=== PATIENT | female | born 1955 | race Caucasian/White ===

== ENCOUNTER 2016-10-27 15:55 | Emergency (ER) | payer OTHER ==
[2016-10-27 16:02] VITALS: O2SAT 95
[2016-10-27] MEDS ORDERED: Albuterol-Ipratrop 3 mg / 0.5 (3 ml) UD IH STA (16:19)
--- NOTE | 2016-10-27 16:28 | C.PDOC ---
History Of Present Illness 61 yo female with h/o Asthma, HTN, presents to the ED c/o coughing x 1 week. Symptoms occur mostly at night where she gets coughing episodes that then lead to left back pain and shortness of breathe when she coughs. No chest pain. She' s been using Ventolin and Breo to help with her symptoms and they do help. No fever, chills or bodyaches. She's been eating and drinking normal. No weakness or lightheadedness. Translation by Roma GOTTI:. Dr. Holli Rachel Time Seen by Provider: 10/27/16 16:10 Chief Complaint (Nursing): Cough, Cold, Congestion History Per: Patient, Family History/Exam Limitations: no limitations Past Medical History Reviewed: Historical Data Vital Signs: Last Vital Signs Temp 98.8 F 10/27/16 16:00 Pulse 75 10/27/16 16:00 Resp 19 10/27/16 16:00 BP 132/84 10/27/16 16:00 Pulse Ox 95 10/27/16 16:31 - Medical History PMH: Asthma, HTN Denies: Chronic Kidney Disease Family History: States: Unknown Family Hx - Social History Hx Tobacco Use: No Hx Alcohol Use: No Hx Substance Use: No - Immunization History Hx Tetanus Toxoid Vaccination: No Hx Influenza Vaccination: No Hx Pneumococcal Vaccination: No Review Of Systems Except As Marked, All Systems Reviewed And Found Negative. Cardiovascular: Negative for: Chest Pain Respiratory: Positive for: Cough, Shortness of Breath, Wheezing. Negative for: SOB with Excertion, Pleuritic Pain, Sputum Gastrointestinal: Negative for: Nausea Musculoskeletal: Positive for: Back Pain. Negative for: Neck Pain Neurological: Negative for: Weakness Physical Exam - Physical Exam Appears: Well, No Acute Distress Skin: Normal Color, Warm, Dry Eye(s): bilateral: Normal Inspection, PERRL, EOMI Nose: Normal Oral Mucosa: Moist Tongue: Normal Appearing Throat: Normal Neck: Normal, Normal ROM Cardiovascular: Rhythm Regular Respiratory: Normal Breath Sounds, Rhonchi (left rhonchi), Wheezing (trace expiratory wheezing) Gastrointestinal/Abdominal: Normal Exam Back: Normal Inspection Extremity: Normal ROM Neurological/Psych: Oriented x3, Normal Speech, Normal Motor, Normal Sensation ED Course And Treatment O2 Sat by Pulse Oximetry: 95 Medical Decision Making Medical Decision Makin yo female with h/o HTN/Asthma presents with nasal congestion and cough with associated post-tussive sob/left back pain -- CXR -- Alb/Atrovent -- Prednisone PO -- Reevaluate and disposition 5:30 After one treatment she felt much better. Lungs clear. Still no tachypnea. She says it mostly bothers her at night when she coughs. CXR negative with no pna. Compared cxr to previous xrays. Will discharge her home on albuterol, prednisone and robitussion. Disposition Counseled Patient/Family Regarding: Studies Performed, Diagnosis, Need For Followup - Disposition Referrals: Jessy Young MD [Staff Provider] - Disposition: HOME/ ROUTINE Disposition Time: 17:27 Condition: IMPROVED Additional Instructions: Ms Catherine, thank you for letting us take care of you today. Your provider was Dr. Zazueta. You were treated for Bronchitis. The emergency medical care you received today was directed at your acute symptoms. If you were prescribed any medication, please fill it and take as directed. It may take several days for your symptoms to resolve. Return to the Emergency Department if your symptoms worsen, do not improve, or if you have any other problems. Please contact your doctor or call one of the physicians/clinics you have been referred to that are listed on the Patient Visit Information form that is included in your discharge packet. Bring any paperwork you were given at discharge with you along with any medications you are taking to your follow up visit. Our treatment cannot replace ongoing medical care by a primary care provider (PCP) outside of the emergency department. Thank you for allowing the [facility] team to be part of your care today. If you had an X-Ray or CT scan: A Radiologist will review the ED reading if any change in treatment is needed we will contact you. If you had a blood, urine, or wound culture: It will take several days for the results, if any change in treatment is needed we will contact you. If you had an STI test: It will take 48 hours for the results. Please call after 1 week if you have not heard back. Prescriptions: Albuterol HFA [Ventolin HFA 90 mcg/actuation (8 g)] 2 puff IH Q4 #1 puff guaiFENesin [guaifENESIN] 200 mg PO Q8 #1 bottle predniSONE [predniSONE Tab] 40 mg PO DAILY #8 tab Instructions: Asthma (ED) Forms: General Discharge Instructions - POA Present On Arrival: None - Clinical Impression Clinical Impression: Bronchitis, Asthma
[2016-10-27] MEDS ORDERED: Albuterol-Ipratrop 3 mg / 0.5 (3 ml) UD ONE (17:07)
--- NOTE | 2016-10-27 17:25 | RAD ---
HISTORY: cough r/o pna COMPARISON: Comparison is made to 01/12/2016 TECHNIQUE: Chest PA and lateral FINDINGS: LUNGS: No significant interval change in the lungs. Mild hyperinflation of the lungs is again noted. Small nodular opacities at the lung apices are again seen. PLEURA: No significant pleural effusion identified. No pneumothorax apparent. CARDIOVASCULAR: Normal. OSSEOUS STRUCTURES: No significant abnormalities. VISUALIZED UPPER ABDOMEN: Normal. OTHER FINDINGS: None. IMPRESSION: No active disease. No significant interval change.
[2016-10-27 17:31] VITALS: BP 120/74; PULSE 76; RESP 20; TEMP 97.8
== END 2016-10-27 17:36 | disposition home or self-care (01) ==
LOC: C.ER 15:55
DX: J40 Bronchitis, not specified as acute or chronic (principal); J45.909 Unspecified asthma, uncomplicated

== ENCOUNTER 2016-11-17 17:43 | Observation (INO) | payer OTHER ==
[2016-11-17] MEDS ORDERED: Albuterol-Ipratrop 3 mg / 0.5 (3 ml) UD ONE ×2 (17:55→19:28)
[2016-11-17] MEDS ORDERED: Albuterol-Ipratrop 3 mg / 0.5 (3 ml) UD INH STA (19:08)
[2016-11-17 19:17] LABS: BASO % 0.3 % (0.0-2.0); EOS # 0.7 K/uL (0.0-0.7); EOS % 7.6 % (0.0-4.0); HEMOGLOBIN 14.2 g/dL (11.0-16.0); LYMPH # 5.3 K/uL (1.0-4.3); LYMPH % 55.3 % (20.0-40.0); MEAN CELL VOLUME 90.5 fL (81.0-99.0); MEAN CORPUSCULAR HEMOGLOBIN 30.5 pg (27.0-31.0); MEAN CORPUSCULAR HGB CONC 33.7 g/dL (33.0-37.0); MEAN PLATELET VOLUME 7.7 fL (7.2-11.7); MONO # 0.8 K/uL (0.0-0.8); MONO % 8.5 % (0.0-10.0); NEUT # 2.7 K/uL (1.8-7.0); NEUT % 28.3 % (50.0-75.0); NRBC % 0.1 % (0.0-2.0); RBC 4.67 Mil/uL (3.80-5.20); RED CELL DISTRIBUTION WIDTH 12.6 % (11.5-14.5); WHITE BLOOD COUNT 9.5 K/uL (4.8-10.8)
[2016-11-17 19:24] LABS: ALBUMIN 4.5 g/dL (3.5-5.0)
[2016-11-17 19:27] LABS: ALB/GLOB RATIO 1.1 (1.0-2.1); AST/SGOT 28 U/L (14-36); BLOOD UREA NITROGEN 16 mg/dL (7-17); GFR AFRICAN-AMERICAN > 60; GFR NON-AFRICAN AMERICAN > 60
[2016-11-17 19:28] LABS: ALT/SGPT 35 U/L (9-52); CALCIUM 9.2 mg/dl (8.6-10.4)
--- NOTE | 2016-11-17 19:33 | C.PDOC ---
History Of Present Illness 61 year old female presents to the ED with complaints of SOB for a few days but has worsened today with associated productive cough with white sputum. Patient notes a history of asthma but denies chest pain or fever. Chief Complaint (Nursing): Shortness Of Breath History Per: Patient History/Exam Limitations: no limitations Onset/Duration Of Symptoms: Days, Worse Since (today) Current Symptoms Are (Timing): Still Present Associated Symptoms: Productive Cough. denies: Fever, Chills Recent travel outside of the [place]: No Past Medical History Reviewed: Historical Data, Nursing Documentation, Vital Signs Vital Signs: Last Vital Signs Temp 98.2 F 11/17/16 17:48 Pulse 89 11/17/16 23:33 Resp 20 11/17/16 23:33 BP 133/77 11/17/16 23:33 Pulse Ox 92 L 11/17/16 23:45 - Medical History PMH: Asthma, HTN Family History: States: Unknown Family Hx - Social History Hx Tobacco Use: No Hx Alcohol Use: No Hx Substance Use: No - Immunization History Hx Tetanus Toxoid Vaccination: No Hx Influenza Vaccination: No Hx Pneumococcal Vaccination: No Review Of Systems Constitutional: Negative for: Fever, Chills Cardiovascular: Negative for: Chest Pain Respiratory: Positive for: Cough, Shortness of Breath Gastrointestinal: Negative for: Nausea, Vomiting, Abdominal Pain, Diarrhea Physical Exam - Physical Exam Appears: Non-toxic, Other (Slightly dyspenic ) Skin: Warm, Dry Head: Atraumatic Eye(s): bilateral: Normal Inspection, PERRL, EOMI Oral Mucosa: Moist Neck: Supple Chest: Symmetrical, No Deformity Cardiovascular: Rhythm Regular Respiratory: Rhonchi, Wheezing Gastrointestinal/Abdominal: Soft, No Tenderness, No Distention, No Guarding, No Rebound Neurological/Psych: Oriented x3, Normal Speech, Normal Cognition, Normal Cranial Nerves, Normal Motor, Normal Sensation ED Course And Treatment - Laboratory Results Result Diagrams: 11/17/16 19:14 11/17/16 19:14 ECG: Interpreted By Me, Viewed By Me ECG Rhythm: Sinus Rhythm ECG Interpretation: Normal, No Acute Changes Interpretation Of ECG: NSR, normal tracings. Rate From EC O2 Sat by Pulse Oximetry: 96 Pulse Ox Interpretation: Normal - Radiology CXR: Interpreted by Me, Viewed By Me CXR Interpretation: Yes: Other (presence of infiltrative lesion or chronic changes) Disposition Discussed With : Cody De La Vega Doctor Will See Patient In The: Hospital Counseled Patient/Family Regarding: Diagnosis - Disposition Disposition: HOSPITALIZED Disposition Time: 00:29 Condition: STABLE Forms: [facility] (Liberian) - POA Present On Arrival: None - Clinical Impression Clinical Impression: Asthma exacerbation - Scribe Statement The provider has reviewed the documentation as recorded by the Scribe Yashira Curran All medical record entries made by the Lakshmiibe were at my direction and personally dictated by me. I have reviewed the chart and agree that the record accurately reflects my personal performance of the history, physical exam, medical decision making, and the department course for this patient. I have also personally directed, reviewed, and agree with the discharge instructions and disposition.
[2016-11-17 19:37] LABS: B-TYPE NATRIURETIC PEPTIDE 42.3 pg/mL (0-900)
[2016-11-17] MEDS ORDERED: cefTRIAXone IV 1 gm in Dextros 50 ML IVPB ONE ×2 (19:37→20:17)
[2016-11-17] MEDS ORDERED: Azithromycin 500mg/250ML NS 500 MG/250 ML BAG IV STA (19:38)
[2016-11-17 20:20] LABS: ABG ALLEN TEST POS; ARTERIAL BLOOD GAS HCO3 25.5 mmol/L (21-28); ARTERIAL BLOOD GAS HEMOGLOBIN 12.6 g/dL (11.7-17.4); ARTERIAL BLOOD GAS O2 SAT 97.3 % (95-98); ARTERIAL BLOOD GAS PCO2 43 mm/Hg (35-45); ARTERIAL BLOOD GAS PH 7.39 (7.35-7.45); ARTERIAL BLOOD GAS PO2 70 mm/Hg (80-100); ARTERIAL BLOOD GAS TCO2 27.3 mmol/L (22-28)
[2016-11-17] MEDS ORDERED: Azithromycin 500mg/250ML NS 500 MG/250 ML BAG IVPB ONE (20:29)
--- NOTE | 2016-11-17 21:40 | CT ---
EXAM: CT Chest Without Intravenous Contrast CLINICAL HISTORY: 61 years old, female; Signs and symptoms; Other: Infiltrate chronic changes; Additional info: Sob/ infiltrate or chronic cjhanges TECHNIQUE: Axial computed tomography images of the chest without intravenous contrast. This CT exam was performed using one or more of the following dose reduction techniques: automated exposure control, adjustment of the mA and/or kV according to patient size, and/or use of iterative reconstruction technique. Coronal and sagittal reformatted images were created and reviewed. EXAM DATE/TIME: Exam ordered 11/17/2016 8:05 PM COMPARISON: No relevant prior studies available. FINDINGS: Lungs: There is mild bronchiectasis at the lung apices. Subpleural parenchymal opacities are noted in the lateral aspect of the left upper lobe with associated bronchiectasis. A pleural-based calcification is seen in the right middle lobe abril-laterally. Pleural based calcification is noted in the left lower lobe laterally and adjacent to the mediastinum at the level of the heart at the level of the anterior mediastinum... Scattered subcentimeter parenchymal opacities are noted in both lungs. They are often associated with focal areas of bronchiectasis or mucoid impaction Pleural space: There is biapical pleural thickening. No pneumothorax. No significant effusion. Heart: Unremarkable. No cardiomegaly. No significant pericardial effusion. Bones/joints: Unremarkable. No acute fracture. No dislocation. Soft tissues: Coarse calcifications are noted in the left breast tissue Vasculature: Unremarkable. No thoracic aortic aneurysm. Lymph nodes: Unremarkable. No enlarged lymph nodes. IMPRESSION: 1. Predominantly biapical pleural thickening with bronchiectasis. The distribution of disease and the presence of pleural calcifications predominantly suggest previous granulomatous infection. 2. Scattered parenchymal opacities which appear to be related to areas of mucous impacted dilated distal bronchi. 3. Pleural calcifications. 4. Coarse calcifications noted within the left breast. Correlation with patient's mammogram recommended
[2016-11-17 23:34] VITALS: RESP 20
[2016-11-18] MEDS ORDERED: Albuterol-Ipratrop 3 mg / 0.5 (3 ml) UD IH PRN (01:36)
--- NOTE | 2016-11-18 02:39 | CP.PCM.HP ---
<Khurram Kinney - Last Filed: 11/18/16 02:33> History of Present Illness - History of Present Illness History of Present Illness: PGY-[address] De La Vega HPI: This is a 61 year old female with a PMH of HTN and Asthma who presents to the ED with a CC of trouble breathing for 1 week. It is associated with a cough at night that is consistently waking her up. The SOB has been constant since it began. She denies any prior episodes. She uses an inhaler every morning and has recently been started on Singulair. She denies sick contacts or recent travel. She denies CP/F/night sweats/Chills/N/V. PMH: * Asthma * HTN PSH: none SH: , lives with her who is currently overseas, denies smoking and alcohol use Meds: * Albuterol 3mg * Montelukast 10mg Allergies: * Advil * Eggs * Fish * Peanuts Present on Admission - Present on Admission Any Indicators Present on Admission: No History of DVT/PE: No History of Uncontrolled Diabetes: No Urinary Catheter: No Decubitus Ulcer Present: No Review of Systems - Constitutional Constitutional: As Per HPI - EENT Eyes: As Per HPI Ears: As Per HPI Nose/Mouth/Throat: As Per HPI - Breasts Breasts: As Per HPI - Cardiovascular Cardiovascular: As Per HPI - Respiratory Respiratory: As Per HPI - Gastrointestinal Gastrointestinal: As Per HPI - Genitourinary Genitourinary: As Per HPI - Reproductive: Female Reproductive:Female: As Per HPI - Menstruation Menstruation: As Per HPI - Musculoskeletal Musculoskeletal: As Per HPI - Integumentary Integumentary: As Per HPI - Neurological Neurological: As Per HPI - Psychiatric Psychiatric: As Per HPI - Endocrine Endocrine: As Per HPI - Hematologic/Lymphatic Hematologic: As Per HPI Past Patient History - Infectious Disease Hx of Infectious Diseases: None - Past Medical History & Family History Past Medical History?: Yes - Past Social History Smoking Status: Never Smoked - CARDIAC Hx Hypertension: Yes - PULMONARY Hx Asthma: Yes - NEUROLOGICAL Hx Neurological Disorder: No Other/Comment: AAOX3 - HEENT Hx HEENT Problems: No - RENAL Hx Chronic Kidney Disease: No - ENDOCRINE/METABOLIC Hx Endocrine Disorders: No - HEMATOLOGICAL/ONCOLOGICAL Hx Blood Disorders: No Hx Blood Transfusions: No - INTEGUMENTARY Hx Dermatological Problems: No - MUSCULOSKELETAL/RHEUMATOLOGICAL Hx Falls: No - GASTROINTESTINAL Hx Gastrointestinal Disorders: No - GENITOURINARY/GYNECOLOGICAL Hx Genitourinary Disorders: No - PSYCHIATRIC Hx Substance Use: No - SURGICAL HISTORY Hx Surgeries: No - ANESTHESIA Hx Anesthesia: No Meds Allergies/Adverse Reactions: Allergies Allergy/AdvReac Type Severity Reaction Status Date / Time EGG Allergy Verified 11/17/16 17:47 ibuprofen [From Advil] Allergy SHORTNESS Verified 11/17/16 17:47 OF BREATH nut - unspecified Allergy Verified 11/17/16 17:47 peas Allergy Verified 11/17/16 17:47 moxifloxacin AdvReac RASH Verified 11/17/16 17:47 Physical Exam - Constitutional Appears: Well, Non-toxic, No Acute Distress - Head Exam Head Exam: ATRAUMATIC, NORMAL INSPECTION, NORMOCEPHALIC - Eye Exam Eye Exam: EOMI, Normal appearance. absent: Conjunctival injection, Periorbital swelling, Periorbital tenderness Pupil Exam: absent: Fixed, Irregular, Miosis, Mydriatic - ENT Exam ENT Exam: Mucous Membranes Moist, Normal Exam. absent: Mucous Membranes Dry - Respiratory Exam Respiratory Exam: Clear to Auscultation Bilateral, NORMAL BREATHING PATTERN. absent: Accessory Muscle Use, Chest Wall Tenderness, Decreased Breath Sounds, Rhonchi, Wheezes - Cardiovascular Exam Cardiovascular Exam: REGULAR RHYTHM, RRR. absent: Bradycardia, Tachycardia, Irregular Rhythm, JVD - GI/Abdominal Exam GI & Abdominal Exam: Normal Bowel Sounds, Soft. absent: Bruit, Diminished Bowel Sounds, Distended, Firm, Guarding, Hernia, Hyperactive Bowel Sounds, Hypoactive Bowel Sounds, Mass, Organomegaly, Pulsatile Mass, Rebound, Rigid, Tenderness - Neurological Exam Neurological exam: Alert, Oriented x3 - Psychiatric Exam Psychiatric exam: Normal Affect, Normal Mood - Skin Skin Exam: Dry, Intact, Normal Color, Warm - Additional Findings Additional findings: coughing, non productive Results - Vital Signs Recent Vital Signs: Last Vital Signs Temp 98.2 F 11/18/16 01:32 Pulse 90 11/18/16 01:32 Resp 20 11/18/16 01:32 BP 137/78 11/18/16 01:32 Pulse Ox 96 11/18/16 01:32 - Labs Result Diagrams: 11/17/16 19:14 11/17/16 19:14 Assessment & Plan - Assessment and Plan (Free Text) Assessment: 1. Asthma Exacerbation * CT Chest: No evidence of PNA * Duoneb 3mg PRN * Singulair 10mg HS * Solumedrol 10mg IV Q6 * Measure Peak Flow 2. HTN * Amlodipine 10mg PO QD 3. PPX * Ambulate, OOB - Date & Time Date: 11/18/16 Time: 02:46 Decision To Admit - Pt Status Changed To: Hospital Disposition Of: Observation - . Bed Request Type: Regular Admitting Physician: Cody De La Vega <Cody De La Vega - Last Filed: 11/18/16 05:30> Results - Vital Signs Recent Vital Signs: Last Vital Signs Temp 98.2 F 11/18/16 01:32 Pulse 90 11/18/16 01:32 Resp 20 11/18/16 01:32 BP 137/78 11/18/16 01:32 Pulse Ox 96 11/18/16 01:32 - Labs Result Diagrams: 11/17/16 19:14 11/17/16 19:14 Assessment & Plan - Date & Time Date: 11/18/16 (I have seen and examined the patient. I agree with the findings and plan of care as documented by Dr. Kinney. Patient with asthma exacerbation. Continue home meds. Duonebs with peak flows before and after treatment. Solumedrol IV. Monitor for acute changes.) Time: 05:30 Attending/Attestation - Attestation I have personally seen and examined this patient.: Yes I have fully participated in the care of the patient.: Yes I have reviewed all pertinent clinical information: Yes
[2016-11-18] MEDS: Albuterol-Ipratrop 3 mg / 0.5 (3 ml) UD IH PRN ×4 (05:48→22:15)
--- NOTE | 2016-11-18 08:15 | RAD ---
HISTORY: Shortness of breath COMPARISON: No prior. TECHNIQUE: Chest PA and lateral FINDINGS: LUNGS: Prominent biapical pleural thickening with upper lobe confluent nodular opacities again noted at the lung apices. Diffuse increased interstitial lung markings. Right hilar prominence. Bibasilar breast and nipple shadows. Small nodular density projecting over the left lower lung zone. Scattered nodularity throughout both lungs. PLEURA: No significant pleural effusion identified. No pneumothorax apparent. CARDIOVASCULAR: Calcification at the aortic knob. OSSEOUS STRUCTURES: Degenerative changes in the spine. VISUALIZED UPPER ABDOMEN: Normal. OTHER FINDINGS: None. IMPRESSION: Prominent biapical pleural thickening with upper lobe confluent nodular opacities again noted at the lung apices. Diffuse increased interstitial lung markings. Right hilar prominence. Bibasilar breast and nipple shadows. Small nodular density projecting over the left lower lung zone. Scattered nodularity throughout both lungs.
--- NOTE | 2016-11-18 17:49 | CP.PCM.PN ---
Subjective - Date & Time of Evaluation Date of Evaluation: 11/18/16 Time of Evaluation: 12:40 - Subjective Subjective: PGY-[address] Hyde Patient seen and examined at bedside. Patient states that she uses her Albuterol 3 times a day. Patient states that she has never been intubated. Patient reports slight shortness of breath. Patient is feeling congested and has a dry cough. Denies chest pain, abdominal pain, dysuria. Objective - Vital Signs/Intake and Output Vital Signs (last 24 hours): Temp Pulse Resp BP Pulse Ox 97.7 F 93 H 20 114/65 98 11/18/16 16:50 11/18/16 16:50 11/18/16 16:50 11/18/16 16:50 11/18/16 16:50 Intake and Output: 11/18/16 11/18/16 06:59 18:59 Intake Total 200 300 Balance 200 300 - Medications Medications: Current Medications Albuterol/Ipratropium (Duoneb 3 Mg/0.5 Mg (3 Ml) Ud) 3 ml IH RQ4 PRN PRN Reason: asthma Last Admin: 11/18/16 15:46 Dose: 3 ml Amlodipine Besylate (Norvasc) 10 mg PO DAILY [facility] Last Admin: 11/18/16 10:07 Dose: 10 mg Guaifenesin (Mucinex La) 600 mg PO BID [facility] Methylprednisolone (Solu-Medrol) 40 mg IV Q6 [facility] Last Admin: 11/18/16 17:37 Dose: 40 mg Montelukast Sodium (Singulair) 10 mg PO HS [facility] Fluticasone/Salmeterol (Advair Diskus 250/50) 1 puff INH RQ12 [facility] - Constitutional Appears: No Acute Distress - Head Exam Head Exam: ATRAUMATIC, NORMAL INSPECTION, NORMOCEPHALIC - Eye Exam Eye Exam: EOMI, PERRL - ENT Exam ENT Exam: Mucous Membranes Moist - Respiratory Exam Respiratory Exam: Rhonchi, Wheezes. absent: Rales - Cardiovascular Exam Cardiovascular Exam: REGULAR RHYTHM, +S1, +S2 - GI/Abdominal Exam GI & Abdominal Exam: Soft, Normal Bowel Sounds. absent: Tenderness - Neurological Exam Neurological Exam: Alert, Awake, Oriented x3 - Skin Skin Exam: Dry, Intact, Normal Color, Warm Assessment and Plan - Assessment and Plan (Free Text) Plan: 1. Asthma Exacerbation CT Chest: 1. Predominantly biapical pleural thickening with bronchiectasis. The distribution of disease and the presence of pleural calcifications predominantly suggest previous granulomatous infection. 2. Scattered parenchymal opacities which appear to be related to areas of mucous impacted dilated distal bronchi. * Duoneb 3mg PRN * Singulair 10mg HS * Solumedrol 10mg IV Q6 * Advair 250/125 Q12H * Measure Peak Flow 2. Hypertension * Amlodipine 10mg PO QD 3. Prophylactic measures * Ambulate * OOB Case discussed with Dr. Hyde. Bernard Lance PGY1
[2016-11-18] MEDS: Fluticasone-Salmeterol 250-50mcg Diskus INH SCH ×2 (19:39→22:14)
[2016-11-18] MEDS: guaiFENesin 600 mg ER Tab PO SCH (21:23)
[2016-11-19] MEDS: Albuterol-Ipratrop 3 mg / 0.5 (3 ml) UD IH PRN ×4 (07:21→19:22)
[2016-11-19 07:31] LABS: BASO % 0.1 % (0.0-2.0); HEMOGLOBIN 12.8 g/dL (11.0-16.0); LYMPH # 1.5 K/uL (1.0-4.3); MEAN CELL VOLUME 91.3 fL (81.0-99.0); MEAN CORPUSCULAR HEMOGLOBIN 29.8 pg (27.0-31.0); MEAN CORPUSCULAR HGB CONC 32.6 g/dL (33.0-37.0); MEAN PLATELET VOLUME 8.1 fL (7.2-11.7); MONO # 0.6 K/uL (0.0-0.8); MONO % 3.8 % (0.0-10.0); NEUT % 86.1 % (50.0-75.0); RBC 4.29 Mil/uL (3.80-5.20); RED CELL DISTRIBUTION WIDTH 12.5 % (11.5-14.5)
[2016-11-19 07:33] LABS: WHITE BLOOD COUNT 15.2 K/uL (4.8-10.8)
[2016-11-19 07:39] LABS: ALB/GLOB RATIO 1.1 (1.0-2.1); ALT/SGPT 25 U/L (9-52); AST/SGOT 19 U/L (14-36); BLOOD UREA NITROGEN 15 mg/dL (7-17); GFR AFRICAN-AMERICAN > 60; GFR NON-AFRICAN AMERICAN > 60
[2016-11-19 07:40] LABS: CALCIUM 8.8 mg/dl (8.6-10.4)
[2016-11-19] MEDS: Fluticasone-Salmeterol 250-50mcg Diskus INH SCH ×2 (09:33→19:22)
[2016-11-19] MEDS ORDERED: Enoxaparin 40 mg Syringe SC SCH (10:00)
[2016-11-19] MEDS: MethylPREDNISolone 40 mg Vial IV SCH ×3 (10:56→17:08)
[2016-11-19] MEDS: guaiFENesin 600 mg ER Tab PO SCH ×2 (10:57→17:09)
--- NOTE | 2016-11-19 12:53 | CP.PCM.PN ---
Subjective - Date & Time of Evaluation Date of Evaluation: 11/19/16 Time of Evaluation: 12:30 - Subjective Subjective: Hospitalist Progress Note (Patient was seen and examined at 12:30 PM 11/19/16) Patient was admitted on 11/18/16 for Asthma Exacerbation. At the time of my exam, patient revealed that she does not take any medication at home for her Asthma as well as for her HTN. Explained at length the obvious that she needed to take her medications and needed to follow up with the [facility] at [facility] so that her care could be appropriately coordinated. She expressed understanding. Currently upon FULL ROS: Dry cough nonproductive NO SOB/Wheezing/Dyspnea NO chest pain States that she is breathing much better and no longer requiring O2 via NC NO Other complaints upon FULL ROS Exam: General: AAOx3, NAD, Speaking in full sentences with me and on the phone prior to my exam, NO accessory respiratory muscle use HEENT: NCA, EOMI, PERRLA, NO cervical/supraclavicular/submandibular lymphadenopathy, NO pharyngeal erythema/exudate, NO nasal turbinate erythema/ edema, NO thyromegaly Cardio: NS1 and NS2, NO M/R/G Respiratory: CTA B/L, NO R/R/W GI: BSx4, Soft, NT, ND, NO HSM, NO guarding/rebound tenderness Neuro: CN II through XII are grossly intact Ext: Pulses are strong and equal, Capillary Refill is 2 seconds, NO edema Vitals are stable and there is no respiratory difficulty. Patient is stable for discharge. The following instructions should be included in the discharge instructions and discharge summary by the resident. 1). Please call the [facility] at [facility] at [phone] for an appointment to take place in the next 7 to 10 days. It is located on Floor B of [facility] 2). Through the [facility], have evaluation by Lung Doctor for your history of Asthma and Bronchiectasis. 3). Have the following prescriptions filled at your pharmacy: [facility], Please use as directed, Dispense #1, NO refills Prednisone 10 mg, 5 tablet by mouth on 11/20/16, 4 tablet by mouth on 11/21/16, 3 tablet by mouth on 11/22/16, 2 tablet by mouth on 11/23/16, 1 tablet by mouth on , Dispense #15, NO refills Breo Ellipta 25/100 mcg per actuation, 1 inhalation by mouth once a day, Dispense #1, NO refills Singulair 10 mg, 1 tablet by mouth once a day in the evening, Dispense #30, NO refills Albuterol 90 mcg/actuation, 2 puffs by mouth inhaled every 6 hours ONLY NEEDED for Shortness of breath/Wheezing, Dispense #1, NO refills Norvasc 10 mg, 1 tablet by mouth once a day, Dispense #30, NO refills 4). Please make sure that you follow the above instructions. Failure to do so will have detrimental effects to your health. 5). Please take care. Quoc Arenas D.O. Objective - Vital Signs/Intake and Output Vital Signs (last 24 hours): Temp Pulse Resp BP Pulse Ox 97.9 F 89 20 115/67 98 11/19/16 08:13 11/19/16 08:13 11/19/16 08:13 11/19/16 08:13 11/19/16 08:13 Intake and Output: 11/19/16 11/19/16 06:59 18:59 Intake Total 540 Balance 540 - Medications Medications: Current Medications Albuterol/Ipratropium (Duoneb 3 Mg/0.5 Mg (3 Ml) Ud) 3 ml IH RQ4 PRN PRN Reason: asthma Last Admin: 11/19/16 10:55 Dose: 3 ml Amlodipine Besylate (Norvasc) 10 mg PO DAILY [facility] Last Admin: 11/19/16 10:56 Dose: 10 mg Enoxaparin Sodium (Lovenox) 40 mg SC DAILY [facility] Last Admin: 11/19/16 10:56 Dose: 40 mg Guaifenesin (Mucinex La) 600 mg PO BID [facility] Last Admin: 11/19/16 10:57 Dose: 600 mg Methylprednisolone (Solu-Medrol) 40 mg IV Q6 [facility] Last Admin: 11/19/16 10:56 Dose: 40 mg Montelukast Sodium (Singulair) 10 mg PO HS [facility] Last Admin: 11/18/16 21:23 Dose: 10 mg Fluticasone/Salmeterol (Advair Diskus 250/50) 1 puff INH RQ12 [facility] Last Admin: 11/19/16 09:33 Dose: 1 puff - Labs Labs: 11/19/16 07:07 11/19/16 07:07
[2016-11-19 16:24] VITALS: BP 116/60; PULSE 97; TEMP 98; O2SAT 95
--- NOTE | 2016-11-19 19:44 | CP.PCM.DIS ---
Provider - Provider Date of Admission: 11/18/16 00:29 Attending physician: Cody De La Vega MD Time Spent in preparation of Discharge (in minutes): 60 Hospital Course - Lab Results Lab Results: Most Recent Lab Values WBC 15.2 K/uL (4.8-10.8) H D 11/19/16 07:07 RBC 4.29 Mil/uL (3.80-5.20) 11/19/16 07:07 Hgb 12.8 g/dL (11.0-16.0) 11/19/16 07:07 Hct 39.2 % (34.0-47.0) 11/19/16 07:07 MCV 91.3 fL (81.0-99.0) 11/19/16 07:07 MCH 29.8 pg (27.0-31.0) 11/19/16 07:07 MCHC 32.6 g/dL (33.0-37.0) L 11/19/16 07:07 RDW 12.5 % (11.5-14.5) 11/19/16 07:07 Plt Count 231 K/uL (130-400) 11/19/16 07:07 MPV 8.1 fL (7.2-11.7) 11/19/16 07:07 Neut % (Auto) 86.1 % (50.0-75.0) H 11/19/16 07:07 Lymph % (Auto) 10.0 % (20.0-40.0) L 11/19/16 07:07 Ogle % (Auto) 3.8 % (0.0-10.0) 11/19/16 07:07 Eos % (Auto) 0.0 % (0.0-4.0) 11/19/16 07:07 Baso % (Auto) 0.1 % (0.0-2.0) 11/19/16 07:07 Neut # 13.0 K/uL (1.8-7.0) H 11/19/16 07:07 Lymph # 1.5 K/uL (1.0-4.3) 11/19/16 07:07 Ogle # 0.6 K/uL (0.0-0.8) 11/19/16 07:07 Eos # 0.0 K/uL (0.0-0.7) 11/19/16 07:07 Baso # 0.0 K/uL (0.0-0.2) 11/19/16 07:07 Puncture Site Rra 11/17/16 20:15 pCO2 43 mm/Hg (35-45) 11/17/16 20:15 pO2 70 mm/Hg (80-100) L 11/17/16 20:15 HCO3 25.5 mmol/L (21-28) 11/17/16 20:15 ABG pH 7.39 (7.35-7.45) 11/17/16 20:15 ABG Total CO2 27.3 mmol/L (22-28) 11/17/16 20:15 ABG O2 Saturation 97.3 % (95-98) 11/17/16 20:15 ABG Base Excess 0.8 mmol/L (-2.0-3.0) 11/17/16 20:15 ABG Hemoglobin 12.6 g/dL (11.7-17.4) 11/17/16 20:15 ABG Carboxyhemoglobin 1.9 % (0.5-1.5) H 11/17/16 20:15 POC ABG HHb (Measured) 2.6 % (0.0-5.0) 11/17/16 20:15 ABG Methemoglobin 1.0 % (0.0-3.0) 11/17/16 20:15 Ignacio Test Pos 11/17/16 20:15 A-a O2 Difference 26.0 mm/Hg 11/17/16 20:15 Respiratory Index 0.4 11/17/16 20:15 Hgb O2 Saturation 94.5 % (95.0-98.0) L 11/17/16 20:15 FiO2 21.0 % 11/17/16 20:15 Sodium 140 mmol/L (132-148) 11/19/16 07:07 Potassium 3.7 mmol/L (3.6-5.2) 11/19/16 07:07 Chloride 98 mmol/L (98-107) 11/19/16 07:07 Carbon Dioxide 24 mmol/L (22-30) 11/19/16 07:07 Anion Gap 21 (10-20) H 11/19/16 07:07 BUN 15 mg/dL (7-17) 11/19/16 07:07 Creatinine 0.7 MG/DL (0.7-1.2) 11/19/16 07:07 Est GFR ( Amer) > 60 11/19/16 07:07 Est GFR (Non-Af Amer) > 60 11/19/16 07:07 Random Glucose 180 mg/dL (65-105) H 11/19/16 07:07 Calcium 8.8 mg/dl (8.6-10.4) 11/19/16 07:07 Total Bilirubin 0.5 mg/dL (0.2-1.3) 11/19/16 07:07 AST 19 U/L (14-36) 11/19/16 07:07 ALT 25 U/L (9-52) 11/19/16 07:07 Alkaline Phosphatase 76 U/L (38-126) 11/19/16 07:07 NT-Pro-B Natriuret Pep 42.3 pg/mL (0-900) 11/17/16 19:14 Total Protein 7.6 g/dL (6.3-8.3) 11/19/16 07:07 Albumin 4.0 g/dL (3.5-5.0) 11/19/16 07:07 Globulin 3.6 gm/dL (2.2-3.9) 11/19/16 07:07 Albumin/Globulin Ratio 1.1 (1.0-2.1) 11/19/16 07:07 - Hospital Course Hospital Course: This is a 61 year old female with a PMH of HTN and Asthma who presents to the ED with a CC of trouble breathing for 1 week. It is associated with a cough at night that is consistently waking her up. The SOB has been constant since it began. She denies any prior episodes. She uses an inhaler every morning and has recently been started on Singulair. She denies sick contacts or recent travel. She denies CP/F/night sweats/Chills/N/V. She was placed on solumederol, duonebs and singular. Upon further examination she was having a mild dry cough with NO SOB/Wheezing/Dyspnea, NO chest pain. She States that she is breathing much better and no longer requiring O2 via NC, NO Other complaints upon FULL ROS. - Date & Time of H&P Date of H&P: 11/18/16 Time of H&P: 02:33 Discharge Exam - Head Exam Head Exam: ATRAUMATIC, NORMAL INSPECTION, NORMOCEPHALIC - Eye Exam Eye Exam: EOMI, Normal appearance - ENT Exam ENT Exam: Mucous Membranes Moist - Respiratory Exam Respiratory Exam: NORMAL BREATHING PATTERN, UNREMARKABLE. absent: Rales, Rhonchi, Wheezes, Respiratory Distress, Stridor - Cardiovascular Exam Cardiovascular Exam: REGULAR RHYTHM - GI/Abdominal Exam GI & Abdominal Exam: Normal Bowel Sounds, Unremarkable. absent: Distended, Firm , Guarding, Hernia - Neurological Exam Neurological exam: Alert, Oriented x3 - Psychiatric Exam Psychiatric exam: Normal Affect, Normal Mood - Skin Skin Exam: Dry, Intact, Normal Color, Warm Discharge Plan - Discharge Medications Prescriptions: Albuterol/Ipratropium [Duoneb 3 mg/0.5 mg (3 ml) UD] 3 ml INH RSTAT #30 Fluticasone/Salmeterol 250/50 [Advair Diskus 250/50] 1 puff INH RQ12 #30 puff - Follow Up Plan Condition: GOOD Disposition: HOME/ ROUTINE Patient education suggested?: Yes Instructions: Albuterol (By breathing), Prednisone (By mouth), Amlodipine (By mouth), Montelukast (By mouth), Fluticasone/Vilanterol (By breathing), Asthma ( DC) Additional Instructions: 1). Please call the [facility] at [facility] at [phone] for an appointment to take place in the next 7 to 10 days. It is located on Floor [address] of [facility]. 2). Through the [facility], have evaluation by Lung Doctor for your history of Asthma and Bronchiectasis. 3). Have the following prescriptions filled at your pharmacy: [facility] Pack, Please use as directed, Dispense #1, NO refills Prednisone 10 mg, 5 tablet by mouth on 11/20/16, 4 tablet by mouth on 11/21/16, 3 tablet by mouth on 11/22/16, 2 tablet by mouth on 11/23/16, 1 tablet by mouth on , Dispense #15, NO refills Breo Ellipta 25/100 mcg per actuation, 1 inhalation by mouth once a day, Dispense #1, NO refills Singulair 10 mg, 1 tablet by mouth once a day in the evening, Dispense #30, NO refills Albuterol 90 mcg/actuation, 2 puffs by mouth inhaled every 6 hours ONLY NEEDED for Shortness of breath/Wheezing, Dispense #1, NO refills Norvasc 10 mg, 1 tablet by mouth once a day, Dispense #30, NO refills 4). Please make sure that you follow the above instructions. Failure to do so will have detrimental effects to your health. Referrals: Jessy Young MD [Staff Provider] - Clinical Quality Measures - Date & Time of Discharge Summary Date of Discharge Summary: 11/19/16 Time of Discharge Summary: 19:48
== END 2016-11-19 20:10 | disposition home or self-care (01) ==
LOC: C.ER 17:43 → C.9E 11-18 00:29 → C.3T 11-18 00:39
PROVIDERS: ADMIT Family Medicine; ATTEND Family Medicine
DX: J45.901 Unspecified asthma with (acute) exacerbation (principal); I10 Essential (primary) hypertension
CPT/HCPCS: 36415; 71020; 71250; 80053; 82803; 83880; 85025; 87040; 94150; 94640; 94760; 96360; 97116; 97161; 97530; 99285; G0378; G8978; G8979; J0456; J0696; J1650; J2920; J2930

== ENCOUNTER 2017-11-29 12:37 | Emergency (ER) | payer OTHER ==
[2017-11-29 12:44] VITALS: BMI 25.6
[2017-11-29 12:50] VITALS: BP 123/68; PULSE 93; RESP 20; TEMP 97.8; O2SAT 96
--- NOTE | 2017-11-29 13:36 | C.PDOC ---
History Of Present Illness 62 year old female presents to ED for evaluation of sinus congestion, sore throat, and intermittent dry cough for the last 3 months. Pt has history of seasonal allergies, on Benadryl. Denies fever. SINUS KAREN, MORNING SORE THROAT, INTERMIT DRY COUGH X 3 MONTHS. HO SEASONAL ALLERGIES, ON BENADRYL. NO FEVER. EXAM NAD HEENT +SINUS KAREN W MIN TEND; RHINORRHEA; THROAT CLEAR LUNGS CTA B/L NO W/R/R Time Seen by Provider: 11/29/17 12:55 Chief Complaint (Nursing): Cough, Cold, Congestion History Per: Patient History/Exam Limitations: no limitations Onset/Duration Of Symptoms: Days Current Symptoms Are (Timing): Still Present Location Of Pain: Throat, Sinus/es Sick Contacts (Context): None Associated Symptoms: Cough. denies: Fever Ear Symptoms: Bilateral: None Recent travel outside of the [place]: No Additional History Per: Patient Past Medical History Reviewed: Historical Data, Nursing Documentation, Vital Signs Vital Signs: Last Vital Signs Temp 97.8 F 11/29/17 12:49 Pulse 93 H 11/29/17 12:49 Resp 20 11/29/17 12:49 BP 123/68 11/29/17 12:49 Pulse Ox 96 11/29/17 18:04 - Medical History PMH: Asthma, COPD (ASTHMA), HTN Denies: Chronic Kidney Disease Family History: States: Unknown Family Hx - Social History Hx Tobacco Use: No Hx Alcohol Use: No Hx Substance Use: No - Immunization History Hx Tetanus Toxoid Vaccination: No Hx Influenza Vaccination: No Hx Pneumococcal Vaccination: No Review Of Systems Except As Marked, All Systems Reviewed And Found Negative. Constitutional: Negative for: Fever, Chills ENT: Positive for: Nose Congestion, Throat Pain. Negative for: Ear Pain Cardiovascular: Negative for: Chest Pain Respiratory: Positive for: Cough. Negative for: Shortness of Breath Gastrointestinal: Negative for: Nausea, Vomiting, Abdominal Pain Physical Exam - Physical Exam Appears: Non-toxic, No Acute Distress Skin: Normal Color, Warm, Dry Head: Atraumatic, Normacephalic, Tenderness (minimal tenderness to sinuses) Eye(s): bilateral: Normal Inspection Nose: Discharge (rhinorrhea), Other (congestion) Oral Mucosa: Moist Tongue: Normal Appearing Lips: Normal Appearing Throat: Normal, No Erythema, No Exudate, No Drooling Neck: Normal ROM, Supple Cardiovascular: Rhythm Regular Respiratory: Normal Breath Sounds, No Rales, No Rhonchi, No Wheezing Extremity: Normal ROM, No Deformity Neurological/Psych: Oriented x3, Normal Speech ED Course And Treatment O2 Sat by Pulse Oximetry: 96 (RA) Pulse Ox Interpretation: Normal - Radiology CXR: Interpreted by Me ([facility]) CXR Interpretation: Yes: No Acute Disease Medical Decision Making Medical Decision Making: CXR ordered and reviewed. Disposition Counseled Patient/Family Regarding: Studies Performed, Diagnosis, Need For Followup, Rx Given - Disposition Referrals: [facility] [Outside] [facility] [Outside] Disposition: HOME/ ROUTINE Disposition Time: 13:52 Condition: GOOD Prescriptions: Desloratadine/Pseudoephedrine [Clarinex-D12 Hour 2.5 mg-120 mg] 1 t12 PO BID PRN #30 t12 PRN Reason: Sinus Symptoms Instructions: Seasonal Allergies (DC) Forms: [employer] (Romansh) - Clinical Impression Clinical Impression: Post-nasal drip, Sore throat - Scribe Statement The provider has reviewed the documentation as recorded by the Lakshmiibjo Arenas All medical record entries made by the Scribe were at my direction and personally dictated by me. I have reviewed the chart and agree that the record accurately reflects my personal performance of the history, physical exam, medical decision making, and the department course for this patient. I have also personally directed, reviewed, and agree with the discharge instructions and disposition.
--- NOTE | 2017-11-29 13:59 | RAD ---
Chest x-ray two views History: Cough. Comparison: 11/17/2016 Findings: Dense biapical pleural thickening with upper lobe granulomatous changes. Focal consolidative changes superimposed at the lung apices with pleural thickening along the lateral aspect of the left upper to mid lung zone. Small nodular density at the left lung base. Diffuse increased interstitial lung markings. Right hilar prominence. Bibasilar breast shadows. Calcification at the aortic knob with tortuous aorta. Mild cardiomegaly. Degenerative changes in the spine. Impression: Dense biapical pleural thickening with upper lobe granulomatous changes. Focal consolidative changes superimposed at the lung apices with pleural thickening along the lateral aspect of the left upper to mid lung zone. Small nodular density at the left lung base. Diffuse increased interstitial lung markings. Right hilar prominence. Bibasilar breast shadows. Calcification at the aortic knob with tortuous aorta. Mild cardiomegaly.
== END 2017-11-29 13:57 | disposition home or self-care (01) ==
LOC: C.ER 12:37
DX: J02.9 Acute pharyngitis, unspecified (principal); R09.82 Postnasal drip; I10 Essential (primary) hypertension

== ENCOUNTER 2018-07-23 14:55 | Emergency (ER) | payer OTHER ==
[2018-07-23 14:55] VITALS: BMI 25.6
[2018-07-23 15:06] VITALS: RESP 18
[2018-07-23] MEDS ORDERED: Sodium Chloride 0.9% 1,000 ML IV ONE (15:46)
--- NOTE | 2018-07-23 16:03 | C.PDOC ---
History Of Present Illness 63 year old female presents to ED with complaint of epigastric abdominal discomfort that began last night. Patient also admits to experiencing nausea and vomiting. Patient states that the pain in her abdomen radiates into her chest. Patient was at [facility] 3 days ago for similar symptoms and had labs and CT scan done. She states that she was told she was constipated and discharged home with advice to take miralax and mylanta. She states that the mylanta has not been helping with her discomfort. Patient reports that she has been having regular bowel movements. Patient denies nasal congestion, coughing, fever, runny nose, chills, and chest pain. Time Seen by Provider: 07/23/18 15:33 Chief Complaint (Nursing): Abdominal Pain History Per: Patient History/Exam Limitations: no limitations Onset/Duration Of Symptoms: Days (1) Current Symptoms Are (Timing): Still Present Location Of Pain/Discomfort: Epigastric Radiation Of Pain To:: Chest Quality Of Discomfort: "Pain" Associated Symptoms: Nausea, Vomiting, Chest Pain. denies: Fever, Chills, Diarrhea, Urinary Symptoms Exacerbating Factors: None Past Medical History Reviewed: Historical Data, Nursing Documentation, Vital Signs Vital Signs: Last Vital Signs Temp 98.3 F 07/23/18 15:00 Pulse 69 07/23/18 15:00 Resp 18 07/23/18 15:00 BP 126/81 07/23/18 15:00 Pulse Ox 99 07/23/18 15:00 - Medical History PMH: Asthma, COPD (ASTHMA), HTN Denies: Chronic Kidney Disease Surgical History: No Surg Hx Family History: States: Unknown Family Hx - Social History Hx Tobacco Use: No Hx Alcohol Use: No Hx Substance Use: No - Immunization History Hx Tetanus Toxoid Vaccination: No Hx Influenza Vaccination: No Hx Pneumococcal Vaccination: No Review Of Systems Constitutional: Negative for: Fever, Chills, Weakness ENT: Negative for: Nose Discharge, Nose Congestion Cardiovascular: Positive for: Chest Pain Respiratory: Negative for: Cough Gastrointestinal: Positive for: Nausea, Vomiting, Abdominal Pain (epigastric). Negative for: Diarrhea Genitourinary: Negative for: Dysuria, Frequency, Hematuria Physical Exam - Physical Exam Appears: Non-toxic, No Acute Distress Skin: Normal Color, Warm, Dry Head: Atraumatic, Normacephalic Neck: Normal ROM, Supple Chest: Symmetrical, No Deformity, No Tenderness Cardiovascular: Rhythm Regular, No Murmur Respiratory: No Accessory Muscle Use, No Rales, No Rhonchi, No Wheezing Gastrointestinal/Abdominal: Bowel Sounds (normoactive), Soft, No Tenderness, No Guarding, No Rebound, No Other (rigidity) Extremity: Capillary Refill (<2 seconds) Neurological/Psych: Oriented x3, Normal Speech, Normal Cognition ED Course And Treatment - Laboratory Results Result Diagrams: 07/23/18 16:03 07/23/18 16:03 Lab Interpretation: No Acute Changes O2 Sat by Pulse Oximetry: 99 (in RA) Pulse Ox Interpretation: Normal - CT Scan/US CT abd/pelvis Other Rad Studies (CT/US): Read By Radiologist, Radiology Report Reviewed CT/US Interpretation: EXAM: CT Abdomen and Pelvis with IV and oral contrast agent. CLINICAL HISTORY: Abd pain. TECHNIQUE: Axial computed tomography images of the abdomen and pelvis with intravenous contrast. 0.00 mGy-cm. CONTRAST: With; OMNI 240 & 100MLS OMNI 350. COMPARISON: None provided. FINDINGS: LUNG BASES: The lung bases appear clear. No pleural effusions are seen. LIVER: Unremarkable. GALLBLADDER AND BILE DUCTS: The gallbladder appears within normal limits. No radioopaque gallstones are seen. No biliary ductal dilatation is evident. PANCREAS: Unremarkable. SPLEEN: Unremarkable. ADRENAL GLANDS: Unremarkable. KIDNEYS, URETERS, AND BLADDER: The kidneys appear within normal limits. There is no hydronephrosis or hydroureter. No urinary calculi are seen. The urinary bladder appeared normal in size and configuration. STOMACH AND BOWEL: Unremarkable appearance of the stomach. No evidence of bowel obstruction. There is mucosal wall thickening seen throughout the small intestinal tract measuring approximately 6.4 mm transversely thought compatible with diffuse enteritis. Infectious or inflammatory etiologies are thought most likely. No evidence suggesting colitis. APPENDIX: No evidence of acute appendicitis on CT examination. PERITONEUM: No free fluid. No free air. LYMPH NODES: No lymphadenopathy is evident. REPRODUCTIVE: Unremarkable as vis ualized. VASCULATURE: No evidence of abdominal aortic aneurysm. Moderate atherosclerotic vascular plaquing is present. BONES: No aggressive appearing osseous lesion. No acute osseous pathology evident. IMPRESSION: 1. Findings are compatible with diffuse enteritis. . Electronically signed on Jul 23, 2018 11:03:33 PM EDT by: Khurram Jackson M.D., GERALDO Certified By ABR & CBC[employer]. Fellowship Trained MRI and CT Specialist Progress Note: 17:40 Patient now in more pain. According to daughter she is having epigastric pain the is coming in spasms. Abdomen seems more tender at this time. CT scan ordered. While waiting for CT patient has an episode of watery nonbloody bowel movement. This did not relieve the pain. Reevaluation Time: 23:09 Reassessment Condition: Improved Medical Decision Making Medical Decision Making: Impression: 63 year old female presents to ED with complaint of epigastric abdominal discomfort that began last night Plan: Labs ordered with CMP,CBC, and UA Patient given Protonix and IV fluids Disposition Counseled Patient/Family Regarding: Studies Performed, Diagnosis, Need For Followup, Rx Given - Disposition Referrals: [facility] [Outside] Disposition: HOME/ ROUTINE Disposition Time: 23:12 Condition: STABLE Prescriptions: Dicyclomine [Bentyl] 20 mg PO QID PRN #20 tab PRN Reason: Pain, Severe (8-10) Instructions: Inflammatory Bowel Disease (DC) Forms: [employer] ([employer]) - Clinical Impression Clinical Impression: Enteritis - Scribe Statement The provider has reviewed the documentation as recorded by the Scribe (Kelsey Macedo) All medical record entries made by the Scribe were at my direction and p ersonally dictated by me. I have reviewed the chart and agree that the record accurately reflects my personal performance of the history, physical exam, medical decision making, and the department course for this patient. I have also personally directed, reviewed, and agree with the discharge instructions and disposition.
[2018-07-23 16:11] LABS: BASO % 0.3 % (0.0-2.0); EOS # 0.6 K/uL (0.0-0.7); EOS % 7.4 % (0.0-4.0); HEMOGLOBIN 14.1 g/dL (11.0-16.0); LYMPH # 3.4 K/uL (1.0-4.3); LYMPH % 41.6 % (20.0-40.0); MEAN CELL VOLUME 92.3 fL (81.0-99.0); MEAN CORPUSCULAR HEMOGLOBIN 30.6 pg (27.0-31.0); MEAN CORPUSCULAR HGB CONC 33.1 g/dL (33.0-37.0); MEAN PLATELET VOLUME 7.6 fL (7.2-11.7); MONO # 0.7 K/uL (0.0-0.8); MONO % 8.5 % (0.0-10.0); NEUT # 3.4 K/uL (1.8-7.0); NEUT % 42.2 % (50.0-75.0); RBC 4.63 Mil/uL (3.80-5.20); RED CELL DISTRIBUTION WIDTH 13.1 % (11.5-14.5); WHITE BLOOD COUNT 8.1 K/uL (4.8-10.8)
[2018-07-23 16:23] LABS: ALB/GLOB RATIO 1.3 (1.0-2.1); ALBUMIN 4.4 g/dL (3.5-5.0); ALT/SGPT 55 U/L (9-52); AST/SGOT 44 U/L (14-36); BLOOD UREA NITROGEN 14 mg/dL (7-17); CALCIUM 9.5 mg/dl (8.6-10.4); GFR NON-AFRICAN AMERICAN > 60; LIPASE 141 U/L (23-300)
[2018-07-23 17:44] LABS: SQUAMOUS EPITHIAL 1 /hpf (0-5); URINE BACTERIA RARE (<OCC); URINE BILIRUBIN NEGATIVE (NEGATIVE); URINE BLOOD 1+ (NEGATIVE); URINE CLARITY Clear (Clear); URINE COLOR Yellow (YELLOW); URINE GLUCOSE (UA) NORMAL (Normal); URINE LEUKOCYTE ESTERASE TRACE Leu/uL (Negative); URINE PROTEIN NEGATIVE (NEGATIVE); URINE UROBILINOGEN NORMAL mg/dL (0.2-1.0)
[2018-07-23] MEDS ORDERED: Iohexol 240 (50 ml) PO ONE (17:44)
[2018-07-23] MEDS ORDERED: Iohexol 240 (50 ml) ONE (18:04)
[2018-07-23] MEDS ORDERED: Iohexol 350mg/ml 100 ML ONE (18:31)
[2018-07-23 19:59] VITALS: PULSE 68
[2018-07-23 23:03] VITALS: BP 125/78; TEMP 97.9
[2018-07-23 23:06] VITALS: O2SAT 99
--- NOTE | 2018-07-24 09:53 | CT ---
CT abdomen and pelvis History: Abdominal pain. Comparison: None available. Technique: Multiple contiguous axial images were performed through the abdomen and pelvis with the use of intravenous contrast. Subsequently, sagittal and coronal reformatted images were obtained. This CT exam was performed using one or more of the following dose reduction techniques: Automated exposure control, adjustment of the mA and/or kV according to patient size, and/or use of iterative reconstruction technique. Findings: Mild scattered atelectasis at the lung bases. No pleural or pericardial effusion. Mild fatty infiltration of the liver. Gallbladder is preserved. Spleen is preserved. Adrenal glands are preserved. Pancreas is preserved. Few thickened and distended loops of small bowel seen within the upper mid abdomen which may represent an underlying enteritis. Clinical correlation. Right kidney: No calculi or hydronephrosis. Left Kidney: No calculi or hydronephrosis. Urinary bladder is preserved. Heterogeneous uterus and bilateral adnexa. Few cecal diverticuli noted. Appendix is within normal limits. Few shotty para-aortic and inguinal lymph nodes. Atherosclerotic calcification and plaque within the aorta. Few shotty mesenteric lymph nodes. Degenerative changes in the spine. Motion artifact somewhat limits evaluation particularly at the level of the pancreatic head. Impression: Few thickened and distended loops of small bowel seen within the upper mid abdomen which may represent an underlying enteritis. Clinical correlation. Additional findings as above. A preliminary report was generated at 11:03 p.m. on 07/23/[address] Khurram Jackson from [employer].
== END 2018-07-23 23:33 | disposition home or self-care (01) ==
LOC: C.ER 14:55
DX: K52.9 Noninfective gastroenteritis and colitis, unspecified (principal)
CPT/HCPCS: 74177; 80053; 81001; 83690; 85025; 96361; 96372; 96374; 96375; 99285; C9113; J0500; J7030; Q9966; Q9967